=== PATIENT | female | born 1950 | race American Indian/Alaskan Native ===

== ENCOUNTER 2019-04-20 16:33 | Observation (INO) | payer MEDICARE ==
[2019-04-20] MEDS ORDERED: ADENOSINE 6 MG/2 ML INJ IV ONE ×4 (17:03→17:28)
[2019-04-20 17:20] LABS: Basophils % (Auto) 1.1 % (0.0-1.8); Eosinophils # (Auto) 0.1 K/mm3 (0.0-0.4); Eosinophils % (Auto) 1.4 % (0.0-4.3); Hematocrit 36.7 % (30.3-42.9); Hemoglobin 11.9 gm/dl (10.1-14.3); Lymphocytes # (Auto) 1.1 K/mm3 (1.2-5.4); Lymphocytes % (Auto) 27.2 % (13.4-35.0); Mean Corpuscular HGB Conc 33 % (30-34); Mean Corpuscular Volume 74 fl (79-97); Monocytes # (Auto) 0.4 K/mm3 (0.0-0.8); Monocytes % (Auto) 8.8 % (0.0-7.3); Platelet Count 122 K/mm3 (140-440); Red Blood Count 4.97 M/mm3 (3.65-5.03); Red Cell Distribution Width 16.6 % (13.2-15.2)
[2019-04-20] MEDS ORDERED: SODIUM CHLORIDE 0.9% 1000 ML 1,000 ML ONE (17:22)
[2019-04-20] MEDS ORDERED: dilTIAZem 25 MG/5 ML INJ IV ONE (17:28)
[2019-04-20 17:33] LABS: BUN/Creatinine Ratio 20; Blood Urea Nitrogen 16 mg/dL (7-17); Calcium 9.6 mg/dL (8.4-10.2); Hemolysis Index 2
[2019-04-20 17:34] LABS: INR 1.03 (0.87-1.13)
[2019-04-20 17:36] LABS: Partial Thromboplastin Time 28.7 Sec. (24.2-36.6)
[2019-04-20 17:44] LABS: Free T4 (Free Thyroxine) 0.93 ng/dL (0.76-1.46)
[2019-04-20] MEDS ORDERED: SODIUM CHLORIDE 0.9% 1000 ML 2,000 ML ONE (17:56)
[2019-04-20] MEDS: ADENOSINE 6 MG/2 ML INJ IV ONE (19:00)
[2019-04-20] MEDS ORDERED: dilTIAZem/D5W 100 MG/100 ML BAG IV SCH (20:00)
--- NOTE | 2019-04-20 20:14 | Emergency Department Report ---
ED Palpitations HPI - General Chief Complaint: Arrhythmia/Palpitations Stated Complaint: RAPID HEARTBEAT/AFIB HISTORY Time Seen by Provider: 04/20/19 16:53 Source: patient Mode of arrival: Ambulatory Limitations: No Limitations - History of Present Illness Initial Comments: 69-year-old female with a past medical history SVT, atrial fibrillation, diabete s, thyroid cancer status post partial thyroidectomy, hypertension currently on sotalol for rate control and Eliquis for anticoagulation presents to the hospital with complaints of intermittent palpitations since 2 PM. Patient has been compliant with her medications. Today she took a dietary supplement the first time and apparently this medication contains caffeine. Patient denies chest pain, shortness of breath, lightheadedness, nausea, vomiting, or diaphoresis. Her hotel or motel room service supervisor is Dr. Amezcua affiliated with [facility] - Related Data Home Medications Medication Instructions Recorded Confirmed Last Taken Sotalol HCl [Sotalol] 120 mg PO BID 08/25/14 04/20/19 03/07/18 08:00 Apixaban [Eliquis] 5 mg PO BID 03/07/18 04/20/19 03/07/18 08:00 Timolol 0.5% 1 drop DAILY 03/07/18 04/20/19 03/07/18 08:00 Allergies Allergy/AdvReac Type Severity Reaction Status Date / Time No Known Allergies Allergy Verified 08/26/14 08:41 ED Review of Systems ROS: Stated complaint: RAPID HEARTBEAT/AFIB HISTORY Other details as noted in HPI Comment: All other systems reviewed and negative ED Past Medical Hx - Past Medical History Previous Medical History?: Yes Hx Hypertension: Yes Hx Diabetes: Yes Hx Liver Disease: No Hx Renal Disease: No (KIDNEY MASS REMOVED IN 2012) Hx Arthritis: Yes Hx Seizures: No Hx Asthma: No Additional medical history: A-Fib, Osteoporosis, Thalassemia, SVT - Surgical History Past Surgical History?: Yes Additional Surgical History: Cardiac Ablation, Right breast, Right kidney - Social History Smoking Status: Never Smoker Substance Use Type: None - Medications Home Medications: Home Medications Medication Instructions Recorded Confirmed Last Taken Type Sotalol HCl [Sotalol] 120 mg PO BID 08/25/14 04/20/19 03/07/18 08:00 History Apixaban [Eliquis] 5 mg PO BID 03/07/18 04/20/19 03/07/18 08:00 History Timolol 0.5% 1 drop DAILY 03/07/18 04/20/19 03/07/18 08:00 History ED Physical Exam - General Limitations: No Limitations - Other Other exam information: General: No limitations, patient is alert in no acute distress Head exam: Atraumatic, normocephalic Eyes exam: Normal appearance ENT: Moist mucous membrane Neck exam: Normal inspection, full range of motion Respiratory exam: Clear to auscultation bilateral, no wheezes, rales, crackles Cardiovascular: Normal rate and rhythm Abdomen: Soft, nondistended, and nontender, with normal bowel sounds, no rebound, or guarding Extremity: No deformity Back: Normal Inspection, no CVA tenderness Neurologic: Alert, oriented x3, speech clear, no gross motor or sensory deficit Psychiatric: Normal mood, affect Skin: No rash ED Course Vital Signs 04/20/19 04/20/19 04/20/19 16:41 17:12 17:16 Pulse Rate 152 H 148 H 148 H Respiratory 18 15 13 Rate Blood Pressure 134/93 Blood Pressure 146/106 [Left] O2 Sat by Pulse 98 97 Oximetry 04/20/19 04/20/19 04/20/19 17:30 17:46 17:59 Pulse Rate 148 H 147 H 150 H Respiratory 13 16 14 Rate Blood Pressure 150/106 150/106 Blood Pressure 150/106 [Left] O2 Sat by Pulse 96 98 98 Oximetry 04/20/19 04/20/19 04/20/19 18:00 18:16 18:30 Pulse Rate 149 H 148 H 149 H Respiratory 11 L 11 L 14 Rate Blood Pressure 136/95 136/95 127/95 Blood Pressure [Left] O2 Sat by Pulse 98 95 Oximetry 04/20/19 04/20/19 04/20/19 18:46 18:56 19:00 Pulse Rate 151 H 151 H 151 H Respiratory 21 12 33 H Rate Blood Pressure 127/95 141/105 Blood Pressure 127/95 [Left] O2 Sat by Pulse 96 97 97 Oximetry 04/20/19 04/20/19 04/20/19 19:04 19:05 19:16 Pulse Rate 143 H 152 H 76 Respiratory 14 14 Rate Blood Pressure 146/82 106/66 Blood Pressure 140/96 [Left] O2 Sat by Pulse 97 97 Oximetry 04/20/19 04/20/19 04/20/19 19:30 19:46 20:00 Pulse Rate 75 78 75 Respiratory 14 18 14 Rate Blood Pressure 110/71 110/71 112/70 Blood Pressure [Left] O2 Sat by Pulse 97 97 96 Oximetry 04/20/19 04/20/19 20:16 20:30 Pulse Rate 76 77 Respiratory 16 15 Rate Blood Pressure 112/70 119/78 Blood Pressure [Left] O2 Sat by Pulse 96 95 Oximetry - Reevaluation(s) Reevaluation #1: 04/20/19 21:34 see mdm - Consultations Consultation #1: 04/20/19 20:14 case d/w Dr Badillo who advises to admit pt overnight and restart her current med. no drip rec at this time. ED Medical Decision Making - Lab Data Result diagrams: 04/20/19 17:01 04/20/19 17:01 Lab Results 04/20/19 04/20/19 04/20/19 Range/Units 17:01 17:01 17:01 WBC 4.1 L (4.5-11.0) K/mm3 RBC 4.97 (3.65-5.03) M/mm3 Hgb 11.9 (10.1-14.3) gm/dl Hct 36.7 (30.3-42.9) % MCV 74 L (79-97) fl MCH 24 L (28-32) pg MCHC 33 (30-34) % RDW 16.6 H (13.2-15.2) % Plt Count 122 L (140-440) K/mm3 Lymph % (Auto) 27.2 (13.4-35.0) % [place] % (Auto) 8.8 H (0.0-7.3) % Eos % (Auto) 1.4 (0.0-4.3) % Baso % (Auto) 1.1 (0.0-1.8) % Lymph # 1.1 L (1.2-5.4) K/mm3 [place] # 0.4 (0.0-0.8) K/mm3 Eos # 0.1 (0.0-0.4) K/mm3 Baso # 0.0 (0.0-0.1) K/mm3 Seg Neutrophils % 61.5 (40.0-70.0) % Seg Neutrophils # 2.5 (1.8-7.7) K/mm3 PT 13.6 (12.2-14.9) Sec. INR 1.03 (0.87-1.13) APTT 28.7 (24.2-36.6) Sec. Sodium 141 (137-145) mmol/L Potassium 3.9 (3.6-5.0) mmol/L Chloride 101.9 (98-107) mmol/L Carbon Dioxide 28 (22-30) mmol/L Anion Gap 15 mmol/L BUN 16 (7-17) mg/dL Creatinine 0.8 (0.7-1.2) mg/dL Estimated GFR > 60 ml/min BUN/Creatinine Ratio 20 % Glucose 104 H (65-100) mg/dL Calcium 9.6 (8.4-10.2) mg/dL Magnesium 1.90 (1.7-2.3) mg/dL Troponin T < 0.010 (0.00-0.029) ng/mL TSH (0.270-4.200) mlU/mL Free T4 (0.76-1.46) ng/dL 04/20/19 Range/Units 17:01 WBC (4.5-11.0) K/mm3 RBC (3.65-5.03) M/mm3 Hgb (10.1-14.3) gm/dl Hct (30.3-42.9) % MCV (79-97) fl MCH (28-32) pg MCHC (30-34) % RDW (13.2-15.2) % Plt Count (140-440) K/mm3 Lymph % (Auto) (13.4-35.0) % [place] % (Auto) (0.0-7.3) % Eos % (Auto) (0.0-4.3) % Baso % (Auto) (0.0-1.8) % Lymph # (1.2-5.4) K/mm3 [place] # (0.0-0.8) K/mm3 Eos # (0.0-0.4) K/mm3 Baso # (0.0-0.1) K/mm3 Seg Neutrophils % (40.0-70.0) % Seg Neutrophils # (1.8-7.7) K/mm3 PT (12.2-14.9) Sec. INR (0.87-1.13) APTT (24.2-36.6) Sec. Sodium (137-145) mmol/L Potassium (3.6-5.0) mmol/L Chloride (98-107) mmol/L Carbon Dioxide (22-30) mmol/L Anion Gap mmol/L BUN (7-17) mg/dL Creatinine (0.7-1.2) mg/dL Estimated GFR ml/min BUN/Creatinine Ratio % Glucose (65-100) mg/dL Calcium (8.4-10.2) mg/dL Magnesium (1.7-2.3) mg/dL Troponin T (0.00-0.029) ng/mL TSH 6.480 H (0.270-4.200) mlU/mL Free T4 0.93 (0.76-1.46) ng/dL - EKG Data -: EKG Interpreted by Me EKG shows normal: ST-T waves (no stemi) Rate: tachycardia (narrow complex tax rate 147, afib vs aflutter 2:1) - EKG Data 04/20/19 21:42 repeat ekg after cardizem: atrial flutter rate 75 no stemi - Medical Decision Making Patient has a history of SVT and atrial fibrillation. Patient is a received 6 and 12 of adenosine without conversion and rhythm. At that time is noted that her IV had infiltrated and she has some subcutaneous swelling at the site in his unlikely that she received that medication IV. A second line was placed and patient received adenosine 6 mg with improvement in hr.. It was a regular narrow complex rhythm and repeat EKG and rhythm strip was requested. Prior to performing this repeat electrocardiogram patient's heart rate back up again. Given that I was tending to another unexpected emergent critical patient/trauma Dr Dawson revaluated patient and provided additional 6 of adenosine and 12 of adenosine without conversion or rhythm or improvement in HR. Cardizem 20 mg IV provided with improved heart rate controlled to her baseline 70s. EKG reveals multiple P waves with underlying rhythm of atrial flutter suspected with a rate of 75. Case was discussed with hotel or motel room service supervisor who advises to restart her current oral medication. I have ordered for patient's Eliquis twice a day and sotalol 120 mg twice a day next doses due at 10:00pm - Differential Diagnosis svt, afib, aflutter, adverse med reaction Critical Care Time: Yes Critical care time in (mins) excluding proc time.: 35 Critical care attestation.: If time is entered above; I have spent that time in minutes in the direct care of this critically ill patient, excluding procedure time. ED Disposition Clinical Impression: Atrial flutter with rapid ventricular response, History of atrial fibrillation, Anticoagulant long-term use, Adverse effects of medication Disposition: OP ADMIT IP TO THIS HOSP Is pt being admited?: Yes Condition: Stable Time of Disposition: 20:13 (Dr Sen/hosp as per Dr Diaz)
[2019-04-20] MEDS ORDERED: ACETAMINOPHEN 325 MG TAB PO PRN (22:34)
[2019-04-20] MEDS ORDERED: MORPHINE 2 MG/1 ML INJ IV PRN (22:34)
[2019-04-20] MEDS ORDERED: ONDANSETRON 4 MG/2 ML INJ IV PRN (22:34)
[2019-04-20] MEDS ORDERED: MAGNESIUM HYDROXIDE (MOM) ORAL LIQD UDC PO PRN (22:34)
[2019-04-21] MEDS: APIXABAN 5 MG TAB PO SCH ×2 (00:20→10:10)
[2019-04-21] MEDS ORDERED: DEXTROSE 50% IN WATER (25GM) 50 ML SYRINGE IV PRN (00:20)
[2019-04-21] MEDS: LATANOPROST 0.005% OPHTH SOLN 2.5 ML OU SCH ×2 (00:21→10:11)
[2019-04-21] MEDS: ADENOSINE 6 MG/2 ML INJ IV ONE (00:24)
--- NOTE | 2019-04-21 00:31 | History and Physical Report ---
History of Present Illness Date of examination: 04/20/19 Date of admission: 04/20/19 20:15 Chief complaint: Palpitation History of present illness: 16-year-old female with known history of diabetes mellitus, atrial fibrillation, history of thyroid cancer status post partial thyroidectomy presenting to the emergency room today complaining of palpitation. Patient denies any chest pain, no nausea vomiting, no headache or dizziness. Patient states that this has been ongoing for a few hours prior to reporting to the emergency room. She has been compliant with her medications and she is also on Eliquis for anticoagulation. Patient admits to taking a supplement that was said to contain a lot of caffeine today. Upon arrival in the emergency room patient was found to be in atrial fibrillation with RVR and occasionally went into SVT and atrial flutter. She i nitially had adenosine IV without any significant improvement and thereafter had IV Cardizem with return to normal sinus rhythm. Patient follows up with cancer registrar Dr. Amezcua at [place]. Past History Past Medical History: atrial fib, diabetes, hypertension, other (h/o thyroid ca., History of osteoporosis, history of thalassemia.) Past Surgical History: thyroidectomy (partial), Other (History of cardiac ablation, right kidney surgery in the past, right breast surgery.) Social history: no significant social history Family history: no significant family history Medications and Allergies Allergies Allergy/AdvReac Type Severity Reaction Status Date / Time No Known Allergies Allergy Verified 08/26/14 08:41 Home Medications Medication Instructions Recorded Confirmed Last Taken Type Sotalol HCl [Sotalol] 120 mg PO BID 08/25/14 04/20/19 03/07/18 08:00 History Apixaban [Eliquis] 5 mg PO BID 03/07/18 04/20/19 03/07/18 08:00 History Timolol 0.5% 1 drop DAILY 03/07/18 04/20/19 03/07/18 08:00 History Latanoprost 0.005% 2.5 bottle .ROUTE QHS 04/20/19 04/21/19 Unknown History Active Meds: Active Medications Acetaminophen (Tylenol) 650 mg PO Q4H PRN PRN Reason: Pain MILD(1-3)/Fever >100.5/CEDEÑO Apixaban (Eliquis) 5 mg PO BID [facility]; Protocol Latanoprost (Latanoprost 0.005%) 1 drops OU BID [facility] Magnesium Hydroxide (Milk Of Magnesia) 30 ml PO Q4H PRN PRN Reason: Constipation Morphine Sulfate (Morphine) 2 mg IV Q4H PRN PRN Reason: Pain, Moderate (4-6) Ondansetron HCl (Zofran) 4 mg IV Q8H PRN PRN Reason: Nausea And Vomiting Sodium Chloride (Sodium Chloride Flush Syringe 10 Ml) 10 ml IV BID [facility] Sodium Chloride (Sodium Chloride Flush Syringe 10 Ml) 10 ml IV PRN PRN PRN Reason: LINE FLUSH Sotalol HCl (Betapace) 120 mg PO BID [facility] Timolol Maleate (Timoptic) 1 drops OU QDAY [facility] Review of Systems Constitutional: no fever, no chills Ears, nose, mouth and throat: no sore throat, no headache Cardiovascular: palpitations, no chest pain Respiratory: no cough, no hemoptysis Gastrointestinal: no nausea, no vomiting, no diarrhea Genitourinary Female: no flank pain, no dysuria, no hematuria Musculoskeletal: no neck pain, no low back pain Integumentary: no rash, no pruritis Neurological: no headaches, no change in mentation Exam - Constitutional Vitals: Temp Pulse Resp BP Pulse Ox 97.4 F L 71 20 107/64 95 04/20/19 23:25 04/20/19 23:25 04/20/19 23:25 04/20/19 23:25 04/20/19 23:25 General appearance: Present: no acute distress - EENT Eyes: Present: PERRL, EOM intact ENT: hearing intact, clear oral mucosa, dentition normal - Neck Neck: Present: supple, normal ROM - Respiratory Respiratory effort: normal Respiratory: bilateral: CTA - Cardiovascular Rhythm: regular Heart Sounds: Present: S1 & S2 - Extremities Extremities: no ischemia, No edema, Full ROM Peripheral Pulses: within normal limits - Abdominal General gastrointestinal: Present: soft, non-tender, non-distended - Musculoskeletal Musculoskeletal: strength equal bilaterally - Psychiatric Psychiatric: appropriate mood/affect, intact judgment & insight, cooperative - Neurologic Neurologic: CNII-XII intact, moves all extremities Results - Labs CBC & Chem 7: 04/20/19 17:01 04/20/19 17:01 Labs: Abnormal lab results 02/09/20 02/09/20 02/09/20 Range/Units 17:01 17:01 17:01 WBC 4.1 L (4.5-11.0) K/mm3 MCV 74 L (79-97) fl MCH 24 L (28-32) pg RDW 16.6 H (13.2-15.2) % Plt Count 122 L (140-440) K/mm3 [place] % (Auto) 8.8 H (0.0-7.3) % Lymph # 1.1 L (1.2-5.4) K/mm3 Glucose 104 H (65-100) mg/dL TSH 6.480 H (0.270-4.200) mlU/mL Assessment and Plan - Patient Problems (1) Atrial flutter with rapid ventricular response Current Visit: Yes Status: Acute Plan to address problem: Rate currently controlled. Will resume patient's routine home medications including anticoagulation once reconciled. We will schedule patient for echocardiogram and also place a consult to cardiology for further evaluation and recommendation. (2) Thyroid cancer Current Visit: No Status: Acute Plan to address problem: Patient has had partial thyroidectomy. (3) Diabetes mellitus Current Visit: Yes Status: Acute Plan to address problem: We will monitor Accu-Cheks and resume routine home medications. (4) DVT prophylaxis Current Visit: No Status: Acute Plan to address problem: Patient currently on anticoagulation. (5) Full code status Current Visit: Yes Status: Acute
[2019-04-21 07:24] LABS: Basophils % (Auto) 0.4 % (0.0-1.8); Eosinophils # (Auto) 0.1 K/mm3 (0.0-0.4); Eosinophils % (Auto) 1.8 % (0.0-4.3); Hematocrit 32.4 % (30.3-42.9); Hemoglobin 10.5 gm/dl (10.1-14.3); Mean Corpuscular HGB Conc 32 % (30-34); Mean Corpuscular Volume 74 fl (79-97); Monocytes # (Auto) 0.4 K/mm3 (0.0-0.8); Monocytes % (Auto) 12.3 % (0.0-7.3); Red Blood Count 4.39 M/mm3 (3.65-5.03); Red Cell Distribution Width 16.7 % (13.2-15.2)
[2019-04-21 07:34] LABS: INR 1.08 (0.87-1.13)
[2019-04-21 07:35] LABS: Partial Thromboplastin Time 30.2 Sec. (24.2-36.6)
[2019-04-21 07:50] LABS: BUN/Creatinine Ratio 18; Blood Urea Nitrogen 14 mg/dL (7-17); Calcium 8.9 mg/dL (8.4-10.2); Hemolysis Index 9
[2019-04-21 08:01] LABS: Platelet Count 95 K/mm3 (140-440)
[2019-04-21] MEDS: INSULIN LISPRO 100 UNIT/ML SUB-Q SCH ×2 (09:38→11:36)
[2019-04-21] MEDS ORDERED: LATANOPROST 0.005% OPHTH SOLN 2.5 ML OU SCH (10:00)
[2019-04-21] MEDS ORDERED: TIMOLOL 0.5% OPHTH SOLN 5 ML OU SCH (10:00)
--- NOTE | 2019-04-21 10:39 | Discharge Summary ---
Providers - Providers Date of Admission: 04/20/19 20:15 Attending physician: KAVIN AUSTIN MD 04/20/19 20:28 Consult to Physician [CONS] Urgent Comment: Consulting Provider: DARINEL SUBRAMANIAN Physician Instructions: Reason For Exam: aflutter rvr, hx of afib 04/21/19 00:20 Consult to Dietitian/Nutrition [CONS] Routine Physician Instructions: Reason For Exam: Reason for Consult: Diet education Primary care physician: [employer] Hospitalization Condition: Stable Hospital course: 69-year-old woman who presented to the hospital with palpitations Atrial flutter with rapid ventricular response with hypercoagulable state She was put back on sotalol, she was seen by cardiology who recommends follow-up at [facility]/EP for possible ablation. Her heart rate was controlled at time of discharge "pt was recently recommended study of SVT and ablation of atrial arrhythmia with Dr. Amezcua at [facility]. She is agreeable to this procedure and states she will have this procedure scheduled in the near future. " Fully anticoagulated on Eliquis History of thyroid cancer Patient has had partial thyroidectomy. Diabetes mellitus Received her home meds DVT prophylaxis Patient is fully anticoagulated Full code status Preventative health counseling performed for 17 minutes Disposition: DC-01 TO HOME OR SELFCARE Time spent for discharge: 33 mins Core Measure Documentation - Palliative Care Palliative Care/ Comfort Measures: Not Applicable - Core Measures Any of the following diagnoses?: none Exam - Constitutional Vitals: Temp Pulse Resp BP Pulse Ox 97.5 F L 74 20 138/90 99 04/21/19 07:48 04/21/19 07:48 04/21/19 07:48 04/21/19 07:48 04/21/19 07:48 General appearance: Present: no acute distress, well-nourished - EENT Eyes: Present: PERRL ENT: hearing intact, clear oral mucosa - Neck Neck: Present: supple, normal ROM - Respiratory Respiratory effort: normal Respiratory: bilateral: CTA - Cardiovascular Heart Sounds: Present: S1 & S2. Absent: rub, click - Extremities Extremities: pulses symmetrical, No edema Peripheral Pulses: within normal limits - Abdominal General gastrointestinal: Present: soft, non-tender, non-distended, normal bowel sounds Female genitourinary: Present: normal - Integumentary Integumentary: Present: clear, warm, dry - Musculoskeletal Musculoskeletal: gait normal, strength equal bilaterally - Psychiatric Psychiatric: appropriate mood/affect, intact judgment & insight - Neurologic Neurologic: CNII-XII intact, moves all extremities Plan Follow up with: PRIMARY CARE, [Primary Care Provider] - 3-5 Days Prescriptions: Apixaban [Eliquis] 5 mg PO BID #180 tablet Sotalol HCl [Sotalol] 120 mg PO BID #180 tablet
--- NOTE | 2019-04-21 11:04 | Consultation ---
History of Present Illness Consult date: 04/21/19 Requesting physician: GIORGIO ARGUELLO Consult reason: arrhythmia History of present illness: The pt is a 69YO female with a past medical history of paroxysmal AFib/AFlutter, paroxysmal SVT, anticoagulated with Eliquis, LBBB, HTN, HLP, DM, breast CA, thyroid CA s/p isthmusectomy at [facility] 04/23/18 with negative margins, panc ytopenia. She is followed by Dr. Amezcua at [facility]. She presented with c/o intermittent palpitations since 2PM on the day or presentation. She states that yesterday morning around 6AM, she took a dietary supplement for the fist time which apparently contained caffeine. She was feeling in her normal state of health until she noted the onset of intermittent palpitations around 2PM. The palpitations lasted for several hours and thus she decided to seek medical attention. Following arrival to ED, pt was found to be in SVT and received 6 and 12 of adenosine without conversion to NSR. At that time her IV was noted to be infiltrated and thus it is unlikely that she received that IV adenosine. A second line was placed and patient received adenosine 6 mg with improvement in HR transiently - rhythm was regular narrow complex rhythm. HR increased again and pt was given IV cardizem bolus with improved heart rate to 70s. EKG showed multiple P waves with underlying rhythm of atrial flutter suspected with a rate of 75. Pt was admitted to telemetry overnight. She was noted to be in NSR upon initiation of remote telemetry and had no additional arrhythmias noted overnight. She states she is feeling much better today, no current complaints. Echo done 02/2018 showed EF 50-55%, abnormal diastolic function, mild MR, mild TR, RVSP 32mmHg, small pericardial effusion. Past History Past Medical History: atrial fib, diabetes, hypertension, other (h/o thyroid ca., History of osteoporosis, history of thalassemia.) Past Surgical History: thyroidectomy (partial), Other (History of cardiac ablation, right kidney surgery in the past, right breast surgery.) Social history: no significant social history Family history: no significant family history Medications and Allergies Allergies Allergy/AdvReac Type Severity Reaction Status Date / Time No Known Allergies Allergy Verified 08/26/14 08:41 Home Medications Medication Instructions Recorded Confirmed Last Taken Type Apixaban [Eliquis] 5 mg PO BID 03/07/18 04/20/19 03/07/18 08:00 History Timolol 0.5% 1 drop DAILY 03/07/18 04/20/19 03/07/18 08:00 History Latanoprost 0.005% 2.5 bottle .ROUTE QHS 04/20/19 04/21/19 Unknown History Sotalol HCl [Sotalol] 120 mg PO BID #180 tablet 04/21/19 Unknown Rx Active Meds: Active Medications Acetaminophen (Tylenol) 650 mg PO Q4H PRN PRN Reason: Pain MILD(1-3)/Fever >100.5/CEDEÑO Apixaban (Eliquis) 5 mg PO BID [facility]; Protocol Last Admin: 04/21/19 10:10 Dose: 5 mg Documented by: Dextrose (D50w (25gm) Syringe) 0 ml IV Q30MIN PRN; Protocol PRN Reason: Hypoglycemia Insulin Human Lispro (Humalog) 0 unit SUB-Q ACHS [facility]; Protocol Last Admin: 04/21/19 09:38 Dose: Not Given Documented by: Latanoprost (Latanoprost 0.005%) 1 drops OU BID [facility] Last Admin: 04/21/19 10:11 Dose: 1 drops Documented by: Magnesium Hydroxide (Milk Of Magnesia) 30 ml PO Q4H PRN PRN Reason: Constipation Morphine Sulfate (Morphine) 2 mg IV Q4H PRN PRN Reason: Pain, Moderate (4-6) Ondansetron HCl (Zofran) 4 mg IV Q8H PRN PRN Reason: Nausea And Vomiting Sodium Chloride (Sodium Chloride Flush Syringe 10 Ml) 10 ml IV BID [facility] Sodium Chloride (Sodium Chloride Flush Syringe 10 Ml) 10 ml IV PRN PRN PRN Reason: LINE FLUSH Sotalol HCl (Betapace) 120 mg PO BID [facility] Last Admin: 04/21/19 00:24 Dose: Not Given Documented by: Timolol Maleate (Timoptic) 1 drops OU QDAY [facility] Review of Systems Constitutional: no weight loss, no weight gain, no fever, no chills, no sweats Ears, nose, mouth and throat: no ear pain, no nose pain, no sinus pressure, no sinus pain Cardiovascular: palpitations, rapid/irregular heart beat, no chest pain, no orthopnea, no edema, no syncope, no lightheadedness, no shortness of breath, no dyspnea on exertion, no leg edema Respiratory: no cough, no shortness of breath, no dyspnea on exertion, no congestion, no wheezing, no pain on inspiration Gastrointestinal: no abdominal pain, no nausea, no vomiting, no diarrhea, no constipation, no change in bowel habits Genitourinary Female: no pelvic pain, no flank pain, no dysuria, no urinary frequency, no urgency Musculoskeletal: no neck stiffness, no neck pain, no shooting arm pain, no arm numbness/tingling, no low back pain, no shooting leg pain Integumentary: no rash, no pruritis, no redness, no sores, no wounds Neurological: no head injury, no transient paralysis, no paralysis, no weakness, no parathesias, no numbness, no tingling, no seizures, no syncope Psychiatric: no anxiety Endocrine: no cold intolerance, no heat intolerance Hematologic/Lymphatic: no easy bruising, no easy bleeding Allergic/Immunologic: no urticaria Physical Examination Vital Signs Pulse Resp BP Pulse Ox 152 H 18 146/106 98 04/20/19 16:41 04/20/19 16:41 04/20/19 16:41 04/20/19 16:41 General appearance: no acute distress HEENT: Positive: PERRL, Normocephaly, Mucus Membranes Moist Neck: Positive: neck supple, trachea midline Cardiac: Positive: Reg Rate and Rhythm, S1/S2 Lungs: Positive: Decreased Breath Sounds Neuro: Positive: Grossly Intact Abdomen: Negative: Tender Skin: Negative: Rash Musculoskeletal: No Pain Extremities: Absent: edema Results 04/21/19 06:44 04/21/19 06:44 Coagulation 04/20/19 04/21/19 Range/Units 17:01 06:44 PT 13.6 14.1 (12.2-14.9) Sec. INR 1.03 1.08 (0.87-1.13) APTT 28.7 30.2 (24.2-36.6) Sec. CBC 04/20/19 04/21/19 Range/Units 17:01 06:44 WBC 4.1 L 3.3 L (4.5-11.0) K/mm3 RBC 4.97 4.39 (3.65-5.03) M/mm3 Hgb 11.9 10.5 (10.1-14.3) gm/dl Hct 36.7 32.4 (30.3-42.9) % Plt Count 122 L 95 L (140-440) K/mm3 Lymph # 1.1 L 1.0 L (1.2-5.4) K/mm3 Pierce # 0.4 0.4 (0.0-0.8) K/mm3 Eos # 0.1 0.1 (0.0-0.4) K/mm3 Baso # 0.0 0.0 (0.0-0.1) K/mm3 Comprehensive Metabolic Panel 04/20/19 04/21/19 Range/Units 17:01 06:44 Sodium 141 145 (137-145) mmol/L Potassium 3.9 4.4 (3.6-5.0) mmol/L Chloride 101.9 110.6 H (98-107) mmol/L Carbon Dioxide 28 22 (22-30) mmol/L BUN 16 14 (7-17) mg/dL Creatinine 0.8 0.8 (0.7-1.2) mg/dL Glucose 104 H 93 (65-100) mg/dL Calcium 9.6 8.9 (8.4-10.2) mg/dL - Imaging and Cardiology Echo: report reviewed (02/2018 showed EF 50-55%, abnormal diastolic function, mild MR, mild TR, RVSP 32mmHg, small pericardial effusion. ) EKG: report reviewed, image reviewed EKG interpretations - Telemetry EKG Rhythm: Sinus Rhythm - EKG Sinus rhythms and dysrhythmias: sinus rhythm Assessment and Plan Currently stable cardiac status. No arrhythmias noted overnight. Pt may discharge home from cardiology standpoint on home cardiac regimen, including Eliquis and sotalol. Discontinuation of dietary supplement recommended, pt is in agreement. Of note, pt was recently recommended study of SVT and ablation of atrial arrhythmia with Dr. Amezcua at [facility]. She is agreeable to this procedure and states she will have this procedure scheduled in the near future. Recommend follow up with Dr. Amezcua within 1-2 weeks. Pt verbalizes understanding. The patient has been seen in conjunction with Dr. Badillo who agrees with the assessment and plan of care. - Patient Problems (1) Paroxysmal SVT (supraventricular tachycardia) Current Visit: Yes Status: Chronic (2) Atrial fibrillation and flutter Current Visit: Yes Status: Chronic Plan to address problem: paroxysmal (3) LBBB (left bundle branch block) Current Visit: Yes Status: Chronic (4) HTN (hypertension) Current Visit: Yes Status: Chronic (5) Hyperlipidemia Current Visit: Yes Status: Chronic (6) Diabetes mellitus Current Visit: Yes Status: Chronic (7) History of thyroid cancer Current Visit: Yes Status: Chronic (8) History of breast cancer Current Visit: Yes Status: Chronic
[2019-04-21 12:15] VITALS: BP 146/95
== END 2019-04-21 13:09 | disposition home or self-care (01) ==
LOC: ED 16:33 → 4A 20:15
PROVIDERS: ADMIT Internal Medicine Geriatric Medicine; ATTEND Internal Medicine
DX: I48.92 Unspecified atrial flutter (principal); I48.91 Unspecified atrial fibrillation; I47.1 Supraventricular tachycardia; C73 Malignant neoplasm of thyroid gland; I10 Essential (primary) hypertension; T50.905A Adverse effect of unspecified drugs, medicaments and biological substances, initial encounter; E11.9 Type 2 diabetes mellitus without complications; M81.0 Age-related osteoporosis without current pathological fracture; D56.9 Thalassemia, unspecified; Z79.01 Long term (current) use of anticoagulants; Z86.79 Personal history of other diseases of the circulatory system; Z85.850 Personal history of malignant neoplasm of thyroid; Z98.890 Other specified postprocedural states
CPT/HCPCS: 36415; 80048; 82962; 83735; 84439; 84443; 84484; 85025; 85610; 85730; 93005; 93010; 96374; 96375; 96376; 99291; G0378; J0153; J7030